=== PATIENT | male | born 1970 | race Two or more races ===

== ENCOUNTER 2018-06-26 10:49 | Inpatient (IN) | payer OTHER, SELFPAY ==
[~2018-06-26] VITALS: Ht 175.3 cm; Wt 91.4 kg
[2018-06-26 11:48] LABS: BASOPHILS # (AUTO) 0.04 x10^3/uL (0-0.1); BASOPHILS % (AUTO) 0 % (0-1); EOSINOPHILS % (AUTO) 1 % (1-7); LYMPHOCYTES # (AUTO) 2.92 x10^3/uL (1-3.4); LYMPHOCYTES % (AUTO) 27 % (22-44); MD NO; MEAN CORPUSCULAR HEMOGLOBIN 29.8 pg (27.5-34.5); MEAN CORPUSCULAR HGB CONC 33.3 g/dL (33.2-36.2); MEAN CORPUSCULAR VOLUME 89.5 fL (81-97); MEAN PLATELET VOLUME 8.1 fL (7.4-10.4); MONOCYTES # (AUTO) 0.79 x10^3/uL (0.2-0.8); MONOCYTES % (AUTO) 7 % (2-9); NEUTROPHILS # (AUTO) 6.83 x10^3/uL (1.8-6.8); NEUTROPHILS % (AUTO) 64 % (42-75); PLATELET COUNT 275 x10^3/uL (130-400); RED BLOOD COUNT 4.76 x10^6/uL (4.38-5.82); RED CELL DISTRIBUTION WIDTH 15.3 % (9.4-14.8)
[2018-06-26 11:52] LABS: ALANINE AMINOTRANSFERASE 93 U/L (12-78); ANION GAP 8 mmol/L (5-15); CALCIUM 8.2 mg/dL (8.5-10.1); CHLORIDE 113 mmol/L (98-107); CREATININE 1.29 mg/dL (0.7-1.3)
[2018-06-26 11:54] LABS: ALKALINE PHOSPHATASE 63 U/L (45-117); TOTAL PROTEIN 6.3 g/dL (6.4-8.2)
[2018-06-26 12:38] LABS: INTERNATIONAL NORMALIZED RATIO 1.11 (0.93-1.1); PROTHROMBIN TIME 11.5 Seconds (9.6-11.5)
[2018-06-26 12:59] LABS: TROPONIN I 0.044 ng/mL (0.000-0.045)
[2018-06-26] MEDS ORDERED: LABETALOL 5MG/ML, 20ML IVPush ONE (13:00)
[2018-06-26] MEDS ORDERED: morphine SULFATE 10 MG/ML, 1ML IVPush ONE (13:00)
[2018-06-26] MEDS ORDERED: MORPHINE SULFATE 4 MG/ML, 1ML ONE (13:14)
[2018-06-26] MEDS ORDERED: LABETALOL 5MG/ML, 20ML ONE (13:14)
[2018-06-26 14:40] VITALS: BP 137/99
[2018-06-26] MEDS ORDERED: ONDANSETRON 2MG/ML, 2ML IVPush PRN (15:00)
[2018-06-26] MEDS ORDERED: morphine SULFATE 10 MG/ML, 1ML IVPush PRN (15:00)
[2018-06-26] MEDS ORDERED: ENOXAPARIN 40 MG/0.4 ML SQ SCH (16:00)
[2018-06-26 16:03] LABS: THYROID STIMULATING HORMONE 2.03 mIU/L (0.358-3.740)
[2018-06-26] MEDS: METOPROLOL TARTRATE 25 MG TABLET PO SCH (16:28)
[2018-06-26] MEDS ORDERED: FUROSEMIDE 20 MG/2 ML IV SCH (17:00)
[2018-06-26] MEDS ORDERED: POTASSIUM CHLORIDE 20 MEQ TAB.ER.PRT PO SCH (17:00)
[2018-06-26 17:47] LABS: MICROSCOPIC INDICATED
[2018-06-26 17:55] LABS: CULTURE INDICATED? NO
[2018-06-26 18:39] VITALS: BP_SYST 141; BP_SYST 146; BP_DIAS 107; BP_DIAS 110
[2018-06-26] MEDS: ENALAPRILAT 1.25 MG/ML, 2ML IVPush PRN (18:46)
[2018-06-26] MEDS ORDERED: HEPARIN 5,000 UNITS/ML, 1ML IV ONE (19:30)
[2018-06-26 20:01] VITALS: BP 138/96
[2018-06-26] MEDS: HEPARIN 25,000 UNITS/500ML PMX 500 ML IV PRN (20:15)
[2018-06-26] MEDS ORDERED: TEMAZEPAM 15 MG CAPSULE PO PRN (21:00)
[2018-06-26 22:33] LABS: TROPONIN I 0.046 ng/mL (0.000-0.045)
[2018-06-27] VITALS (7 sets, daily range): BP systolic 132–158; BP diastolic 92–117
[2018-06-27 03:09] LABS: ALANINE AMINOTRANSFERASE 92 U/L (12-78); ALBUMIN 2.8 g/dL (3.4-5.0); ANION GAP 7 mmol/L (5-15); CALCIUM 8.1 mg/dL (8.5-10.1); CHLORIDE 110 mmol/L (98-107); CHOLESTEROL, TOTAL 135 mg/dL (140-239); CREATININE 1.52 mg/dL (0.7-1.3); TRIGLYCERIDES 83 mg/dL (50-200); VLDL CHOLESTEROL 17 mg/dL (0-25)
[2018-06-27 03:11] LABS: ALKALINE PHOSPHATASE 58 U/L (45-117); BILIRUBIN,TOTAL 0.9 mg/dL (0.2-1.0); CHOL/HDL RATIO 4.4; HDL CHOL % 23 % (26-37); HDL CHOLESTEROL (DIRECT) 31 mg/dL (40-60); LDL CHOLESTEROL,CALCULATED 87 mg/dL (54-169); LDL/HDL RATIO 2.8 (0.5-3.0); TOTAL PROTEIN 6.1 g/dL (6.4-8.2); TROPONIN I 0.037 ng/mL (0.000-0.045)
[2018-06-27] MEDS: HEPARIN 5,000 UNITS/ML, 1ML IV PRN (03:16)
[2018-06-27] MEDS: METOPROLOL TARTRATE 25 MG TABLET PO SCH ×2 (05:35→17:35)
[2018-06-27] MEDS: ENALAPRILAT 1.25 MG/ML, 2ML IVPush PRN (05:42)
[2018-06-27] MEDS ORDERED: POTASSIUM CHLORIDE 20 MEQ TAB.ER.PRT ONE (10:00)
[2018-06-27] MEDS ORDERED: FUROSEMIDE 20 MG/2 ML ONE (10:00)
[2018-06-27] MEDS: LISINOPRIL 5 MG TABLET PO SCH (10:14)
[2018-06-27] MEDS: HEPARIN 25,000 UNITS/500ML PMX 500 ML IV PRN (17:27)
[2018-06-28 03:18] VITALS: BP_SYST 156; BP_SYST 161; BP_DIAS 113; BP_DIAS 118
[2018-06-28] MEDS: METOPROLOL TARTRATE 25 MG TABLET PO SCH (04:32)
[2018-06-28 05:31] LABS: BASOPHILS # (AUTO) 0.03 x10^3/uL (0-0.1); BASOPHILS % (AUTO) 0 % (0-1); EOSINOPHILS # (AUTO) 0.12 x10^3/uL (0-0.4); EOSINOPHILS % (AUTO) 1 % (1-7); LYMPHOCYTES # (AUTO) 2.93 x10^3/uL (1-3.4); LYMPHOCYTES % (AUTO) 34 % (22-44); MD NO; MEAN CORPUSCULAR HGB CONC 33.1 g/dL (33.2-36.2); MEAN CORPUSCULAR VOLUME 90.7 fL (81-97); MEAN PLATELET VOLUME 8.5 fL (7.4-10.4); MONOCYTES # (AUTO) 0.65 x10^3/uL (0.2-0.8); MONOCYTES % (AUTO) 7 % (2-9); NEUTROPHILS # (AUTO) 4.99 x10^3/uL (1.8-6.8); NEUTROPHILS % (AUTO) 57 % (42-75); PLATELET COUNT 237 x10^3/uL (130-400); RED BLOOD COUNT 4.46 x10^6/uL (4.38-5.82); RED CELL DISTRIBUTION WIDTH 15.6 % (9.4-14.8)
[2018-06-28 05:47] LABS: CHLORIDE 110 mmol/L (98-107)
[2018-06-28 05:51] LABS: ANION GAP 8 mmol/L (5-15); CALCIUM 8.2 mg/dL (8.5-10.1); CREATININE 1.32 mg/dL (0.7-1.3)
[2018-06-28] MEDS: HEPARIN 5,000 UNITS/ML, 1ML IV PRN ×2 (05:58→13:35)
[2018-06-28 06:02] VITALS: BP_SYST 150; BP_SYST 152; BP_DIAS 113; BP_DIAS 117
[2018-06-28 07:53] VITALS: BP_SYST 151; BP_SYST 152; BP_DIAS 109; BP_DIAS 116
[2018-06-28] MEDS: LISINOPRIL 5 MG TABLET PO SCH ×2 (08:03→20:03)
[2018-06-28] MEDS: HEPARIN 25,000 UNITS/500ML PMX 500 ML IV PRN (09:28)
[2018-06-28] MEDS ORDERED: LISINOPRIL 5 MG TABLET PO ONE (10:30)
[2018-06-28 11:50] VITALS: BP 147/118
[2018-06-28 14:32] VITALS: BP 142/99
[2018-06-28] MEDS ORDERED: METOPROLOL TARTRATE 25 MG TABLET PO ONE (18:00)
[2018-06-28 19:19] VITALS: BP_SYST 144; BP_SYST 145; BP_DIAS 106; BP_DIAS 109
[2018-06-28] MEDS: SIMVASTATIN 20 MG TABLET PO SCH (20:03)
[2018-06-29] VITALS (7 sets, daily range): BP systolic 137–163; BP diastolic 90–134
[2018-06-29] MEDS: HEPARIN 25,000 UNITS/500ML PMX 500 ML IV PRN ×2 (04:16→18:32)
[2018-06-29 05:35] LABS: BASOPHILS # (AUTO) 0.05 x10^3/uL (0-0.1); BASOPHILS % (AUTO) 1 % (0-1); EOSINOPHILS # (AUTO) 0.14 x10^3/uL (0-0.4); EOSINOPHILS % (AUTO) 2 % (1-7); LYMPHOCYTES # (AUTO) 3.34 x10^3/uL (1-3.4); LYMPHOCYTES % (AUTO) 37 % (22-44); MD NO; MEAN CORPUSCULAR HGB CONC 32.9 g/dL (33.2-36.2); MEAN CORPUSCULAR VOLUME 91.1 fL (81-97); MEAN PLATELET VOLUME 8.6 fL (7.4-10.4); MONOCYTES # (AUTO) 0.75 x10^3/uL (0.2-0.8); MONOCYTES % (AUTO) 8 % (2-9); NEUTROPHILS # (AUTO) 4.64 x10^3/uL (1.8-6.8); NEUTROPHILS % (AUTO) 52 % (42-75); PLATELET COUNT 270 x10^3/uL (130-400); RED BLOOD COUNT 4.67 x10^6/uL (4.38-5.82); RED CELL DISTRIBUTION WIDTH 15.8 % (9.4-14.8)
[2018-06-29 05:47] LABS: ANION GAP 5 mmol/L (5-15); CALCIUM 8.4 mg/dL (8.5-10.1); CHLORIDE 107 mmol/L (98-107)
[2018-06-29 05:48] LABS: CREATININE 1.35 mg/dL (0.7-1.3)
[2018-06-29] MEDS: METOPROLOL SUCCINATE 50 MG TAB.ER.24H PO SCH (05:53)
[2018-06-29] MEDS: LISINOPRIL 5 MG TABLET PO SCH ×2 (09:49→20:43)
[2018-06-29] MEDS: ACETAMINOPHEN 325 MG TABLET PO PRN (12:49)
[2018-06-29] MEDS: SIMVASTATIN 20 MG TABLET PO SCH (20:43)
[2018-06-29] MEDS: ENALAPRILAT 1.25 MG/ML, 2ML IVPush PRN (22:45)
[2018-06-30] VITALS (8 sets, daily range): BP systolic 147–172; BP diastolic 99–140
[2018-06-30] MEDS: ENALAPRILAT 1.25 MG/ML, 2ML IVPush PRN (03:00)
[2018-06-30 05:17] LABS: BASOPHILS # (AUTO) 0.07 x10^3/uL (0-0.1); BASOPHILS % (AUTO) 1 % (0-1); EOSINOPHILS # (AUTO) 0.08 x10^3/uL (0-0.4); EOSINOPHILS % (AUTO) 1 % (1-7); LYMPHOCYTES # (AUTO) 2.65 x10^3/uL (1-3.4); LYMPHOCYTES % (AUTO) 29 % (22-44); MD NO; MEAN CORPUSCULAR HEMOGLOBIN 30.2 pg (27.5-34.5); MEAN CORPUSCULAR HGB CONC 33.1 g/dL (33.2-36.2); MEAN CORPUSCULAR VOLUME 91.4 fL (81-97); MEAN PLATELET VOLUME 8.4 fL (7.4-10.4); MONOCYTES # (AUTO) 0.72 x10^3/uL (0.2-0.8); MONOCYTES % (AUTO) 8 % (2-9); NEUTROPHILS # (AUTO) 5.78 x10^3/uL (1.8-6.8); NEUTROPHILS % (AUTO) 62 % (42-75); PLATELET COUNT 241 x10^3/uL (130-400); RED BLOOD COUNT 4.56 x10^6/uL (4.38-5.82); RED CELL DISTRIBUTION WIDTH 15.5 % (9.4-14.8)
[2018-06-30 05:23] LABS: ANION GAP 8 mmol/L (5-15); CHLORIDE 111 mmol/L (98-107)
[2018-06-30 05:25] LABS: CREATININE 1.45 mg/dL (0.7-1.3)
[2018-06-30] MEDS: METOPROLOL SUCCINATE 50 MG TAB.ER.24H PO SCH (05:43)
[2018-06-30] MEDS: HEPARIN 5,000 UNITS/ML, 1ML IV PRN (05:44)
[2018-06-30] MEDS ORDERED: REGADENOSON 0.4 MG/5 ML SYRINGE ONE (07:36)
[2018-06-30] MEDS: LISINOPRIL 5 MG TABLET PO SCH ×2 (10:31→20:41)
[2018-06-30] MEDS: SPIRONOLACTONE 25 MG TABLET PO SCH (10:31)
[2018-06-30] MEDS: HEPARIN 25,000 UNITS/500ML PMX 500 ML IV PRN (10:50)
[2018-06-30] MEDS ORDERED: APIXABAN 5 MG TABLET ONE (17:12)
[2018-06-30] MEDS: APIXABAN 5 MG TABLET PO SCH (17:18)
[2018-06-30] MEDS: CARVEDILOL 12.5 MG TABLET PO SCH (18:10)
[2018-06-30] MEDS: SIMVASTATIN 20 MG TABLET PO SCH (20:40)
[2018-06-30] MEDS: ACETAMINOPHEN 325 MG TABLET PO PRN (20:41)
[2018-06-30] MEDS ORDERED: APIXABAN 5 MG TABLET PO SCH (21:00)
[2018-07-01 01:58] VITALS: BP 139/89
[2018-07-01] MEDS: APIXABAN 5 MG TABLET PO SCH ×2 (04:38→08:01)
[2018-07-01 04:57] VITALS: BP 144/99
[2018-07-01] MEDS: CARVEDILOL 12.5 MG TABLET PO SCH (04:59)
[2018-07-01 05:45] LABS: BASOPHILS # (AUTO) 0.04 x10^3/uL (0-0.1); BASOPHILS % (AUTO) 1 % (0-1); EOSINOPHILS # (AUTO) 0.09 x10^3/uL (0-0.4); EOSINOPHILS % (AUTO) 1 % (1-7); LYMPHOCYTES # (AUTO) 2.12 x10^3/uL (1-3.4); LYMPHOCYTES % (AUTO) 29 % (22-44); MD NO; MEAN CORPUSCULAR HEMOGLOBIN 29.7 pg (27.5-34.5); MEAN CORPUSCULAR HGB CONC 32.7 g/dL (33.2-36.2); MEAN CORPUSCULAR VOLUME 90.6 fL (81-97); MEAN PLATELET VOLUME 8.1 fL (7.4-10.4); MONOCYTES # (AUTO) 0.73 x10^3/uL (0.2-0.8); MONOCYTES % (AUTO) 10 % (2-9); NEUTROPHILS # (AUTO) 4.24 x10^3/uL (1.8-6.8); NEUTROPHILS % (AUTO) 59 % (42-75); PLATELET COUNT 256 x10^3/uL (130-400); RED BLOOD COUNT 4.57 x10^6/uL (4.38-5.82); RED CELL DISTRIBUTION WIDTH 15.6 % (9.4-14.8)
[2018-07-01 05:48] LABS: ANION GAP 7 mmol/L (5-15); CALCIUM 8.7 mg/dL (8.5-10.1); CHLORIDE 109 mmol/L (98-107); CREATININE 1.17 mg/dL (0.7-1.3)
[2018-07-01 07:59] VITALS: BP 137/90
[2018-07-01] MEDS: LISINOPRIL 5 MG TABLET PO SCH (08:00)
[2018-07-01] MEDS ORDERED: CARVEDILOL 12.5 MG TABLET PO SCH (08:00)
[2018-07-01] MEDS: SPIRONOLACTONE 25 MG TABLET PO SCH (08:00)
[2018-07-01 09:44] VITALS: BP 109/72
[2018-07-01 11:27] VITALS: BP 135/94
[2018-07-01] MEDS ORDERED: CARV25TA12 PO (12:05)
[2018-07-01] MEDS ORDERED: LISI-167 PO (12:05)
[2018-07-01] MEDS ORDERED: APIX5TAB PO (12:05)
[2018-07-01] MEDS ORDERED: HYDR-3342 PO (12:05)
[2018-07-01] MEDS ORDERED: SIMV20TA3 PO (12:05)
[2018-07-01] MEDS ORDERED: SPIR25TA PO (12:05)
[2018-07-01 12:39] VITALS: BP 138/98
[2018-07-01] MEDS ORDERED: CARVEDILOL 25 MG TABLET PO SCH (18:00)
== END 2018-07-01 15:35 | disposition home or self-care (01) | DRG 291 ==
LOC: ED 11:23 → SUATTDRO 14:26 → EDIP 14:40 → 5SO 15:03 → DCLOUNGE 07-01 15:02
PROVIDERS: ADMIT Internal Medicine; ATTEND Internal Medicine
DX: I13.0 Hypertensive heart and chronic kidney disease with heart failure and stage 1 through stage 4 chronic kidney disease, or unspecified chronic kidney disease (principal); I50.21 Acute systolic (congestive) heart failure; N17.9 Acute kidney failure, unspecified; I24.0 Acute coronary thrombosis not resulting in myocardial infarction; N18.9 Chronic kidney disease, unspecified; K80.80 Other cholelithiasis without obstruction; I16.0 Hypertensive urgency; E83.39 Other disorders of phosphorus metabolism; E88.09 Other disorders of plasma-protein metabolism, not elsewhere classified; I08.1 Rheumatic disorders of both mitral and tricuspid valves; K80.20 Calculus of gallbladder without cholecystitis without obstruction; Z87.891 Personal history of nicotine dependence
CPT/HCPCS: 36415; 71045; 76700; 78452; 80048; 80053; 80061; 81001; 83690; 83735; 83880; 84100; 84443; 84484; 85025; 85520; 85610; 93005; 93017; 96374; 96375; C8929; J1644; J1650; J2785; A9502; C9898; J1940; J2270

== ENCOUNTER → 2018-12-09 | Outpatient (CLI) | payer OTHER ==
[~2018-12-09] MED LIST: APIX5TAB PO; CARV25TA12 PO; HYDR-3342 PO; LISI-167 PO; SIMV20TA3 PO; SPIR25TA PO
== END | disposition home or self-care (01) ==
LOC: CFH 12:29
PROVIDERS: ATTEND Internal Medicine Cardiovascular Disease
DX: I51.7 Cardiomegaly (principal); I42.9 Cardiomyopathy, unspecified
CPT/HCPCS: 93306